=== PATIENT | female | born 1980 | race Caucasian/White ===

== ENCOUNTER 2019-05-08 11:35 | Emergency (ER) | payer SELFPAY ==
[~2019-05-08] VITALS: Ht 165.1 cm; Wt 60.9 kg
[2019-05-08] MEDS ORDERED: LIDOCAINE 5% TOPICAL OINTMENT 35GM TUBE. TP ONE (12:00)
[2019-05-08] MEDS ORDERED: LIDOCAINE/EPI/TETRACAINE TOPICAL GEL 3 ML. TP ONE ×2 (12:01→12:30)
[2019-05-08] MEDS ORDERED: DIPHTH,PERTUSS(ACELL),TET TOX 0.5 ML DISP.SYRIN. VAX IM ONE (12:20)
[2019-05-08 12:29] VITALS: BP 119/80
[2019-05-08] MEDS ORDERED: MELO7.5T29 PO (12:32)
--- NOTE | 2019-05-08 12:32 | PHYS DOC ---
Past History Past Medical History: No Pertinent History Past Surgical History: No Surgical History Smoking: Non-smoker Alcohol Use: Occasionally Drug Use: None Adult General Chief Complaint Chief Complaint: LACERATION/AVULSION HPI HPI Patient is a 88-year-old female presents complaining of right-sided head injury. She was pulling a wooden box filled with tools off of a shelf when the box slipped and hit her in the head. This happened shortly prior to arrival. No loss of consciousness. No nausea or vomiting. No change in vision. No neck pain. Bleeding was controlled with pressure.[] Review of Systems Review of Systems Constitutional: Denies fever or chills [] Eyes: Denies change in visual acuity, redness, or eye pain [] HENT: Denies nasal congestion or sore throat [] Respiratory: Denies cough or shortness of breath [] Cardiovascular: No additional information not addressed in HPI [] GI: Denies abdominal pain, nausea, vomiting, bloody stools or diarrhea [] : Denies dysuria or hematuria [] Musculoskeletal: Denies back pain or joint pain [] Integument: See history of present illness[] Neurologic: Denies headache, focal weakness or sensory changes [] Endocrine: Denies polyuria or polydipsia [] All other systems were reviewed and found to be within normal limits, except as documented in this note. Current Medications Current Medications Current Medications Medications (Trade) Dose Ordered Sig/Mary Start Time Stop Time Status Last Admin Dose Admin Diphtheria/ Tetanus/Acell Pertussis (Boostrix) 0.5 ml ONCE ONCE 05/08/19 12:20 05/08/19 12:21 DC 05/08/19 12:19 0.5 ML Lidocaine (Xylocaine) 1 claus 1X ONCE 05/08/19 12:00 05/08/19 12:01 UNV Lidocaine/ Epinephrine (Let Topical) 3 ml 1X ONCE 05/08/19 12:30 05/08/19 12:31 05/08/19 12:19 3 ML Allergies Allergies Allergies Coded Allergies Type Severity Reaction Last Updated Verified Penicillins Allergy Unknown 05/08/19 Yes Physical Exam Physical Exam Constitutional: Well developed, well nourished, no acute distress, non-toxic appearance. [] HENT: Normocephalic, right-sided temporal region LAC within the hairline. No skull exposure. No crepitus. bilateral external ears normal, TMs are clear�no blood or fluid behind the TM. Oropharynx moist, no oral exudates, nose normal. [] Eyes: PERRLA, EOMI, conjunctiva normal, no discharge. [] Neck: Normal range of motion, no tenderness, supple, no stridor. No step-off, no crepitus. [] Cardiovascular:Heart rate regular rhythm, no murmur [] Lungs & Thorax: Bilateral breath sounds clear to auscultation [] Abdomen: Bowel sounds normal, soft, no tenderness, no masses, no pulsatile masses. [] Skin: Warm, dry, no erythema, no rash. [] Back: No tenderness, no CVA tenderness. [] Extremities: No tenderness, no cyanosis, no clubbing, ROM intact, no edema. [] Neurologic: Alert and oriented X 3, normal motor function, normal sensory function, no focal deficits noted. [] Psychologic: Affect normal, judgement normal, mood normal. [] EKG EKG [] Radiology/Procedures Radiology/Procedures [] Course & Med Decision Making Course & Med Decision Making Pertinent Labs and Imaging studies reviewed. (See chart for details) ED course: Patient arrived, was placed in bed, and tolerated exam well. She rec eived updating of her tetanus vaccine. The wound was repaired as noted. She was discharged in improved condition. Medical decision making: Patient appears to have a scalp laceration. There is no evidence of uncontrolled bleeding. No evidence of a skull fracture. No evidence of intracranial.[] Dragon Disclaimer Dragon Disclaimer This electronic medical record was generated, in whole or in part, using a voice recognition dictation system. Departure Departure: Impression: Primary Impression: Scalp laceration Disposition: 01 HOME, SELF-CARE Condition: IMPROVED Referrals: PCP,NO (PCP) Patient Instructions: Staple Wound Closure, [id number] Additional Instructions: Follow-up with your regular doctor in 2 days for a wound check. If you do not have regular doctor a list of local clinics will be provided for you. Torrey out in 7 days. You may shower. No swimming, no hot tubbing until torrey are removed. Return to the ER if worsening pain, purulent drainage, fever of more than 101�, or any other concerns. Scripts Meloxicam (MELOXICAM) 7.5 Mg Tablet 7.5 MG PO DAILY for PAIN, #20 TAB Prov: GABINO MARC DO 05/08/19 Laceration Repair Lac Repair Indication: Right scalp laceration[] Procedure: The patient was placed in the appropriate position and anesthesia around the laceration was provided with LET. The area was then lanced. The laceration was closed with 3 torrey. Total repaired wound length: 2 cm Other Items: None The patient tolerated the procedure well. Hemostasis was achieved. Complications: None. Problem Qualifiers Primary Impression: Scalp laceration Encounter type: initial encounter Qualified Codes: S01.01XA - Laceration without foreign body of scalp, initial encounter GABINO MARC DO May 08, 2019 12:32
== END 2019-05-08 12:35 | disposition home or self-care (01) ==
LOC: ER 11:35
DX: S01.01XA Laceration without foreign body of scalp, initial encounter (principal); Z88.0 Allergy status to penicillin; W22.8XXA Striking against or struck by other objects, initial encounter; Y93.89 Activity, other specified; Y92.89 Other specified places as the place of occurrence of the external cause; Y99.8 Other external cause status
CPT/HCPCS: 12001; 90471; 90715; 99283-25

== ENCOUNTER 2019-05-14 08:42 | Emergency (ER) | payer SELFPAY ==
[~2019-05-14] VITALS: Ht 165.1 cm; Wt 58.9 kg
[~2019-05-14 08:42] MED LIST: MELO7.5T29 PO
--- NOTE | 2019-05-14 08:55 | PHYS DOC ---
Past History Past Medical History: No Pertinent History Past Surgical History: No Surgical History Smoking: Non-smoker Alcohol Use: Occasionally Drug Use: None Adult General Chief Complaint Chief Complaint: SUTURE/STAPLE REMOVAL HPI HPI 39-year-old female presents for staple removal. The patient has had them in 6 days. She had a small laceration to the right side of her scalp. She has had no complications. She's had no further bleeding. She denies fever or chills. Review of Systems Review of Systems Constitutional: Denies fever or chills [] Eyes: Denies change in visual acuity, redness, or eye pain [] HENT: Denies nasal congestion or sore throat [] Respiratory: Denies cough or shortness of breath [] Cardiovascular: No additional information not addressed in HPI [] GI: Denies abdominal pain, nausea, vomiting, bloody stools or diarrhea [] : Denies dysuria or hematuria [] Musculoskeletal: Denies back pain or joint pain [] Integument: [place] in right scalp[] Neurologic: Denies headache, focal weakness or sensory changes [] Endocrine: Denies polyuria or polydipsia [] All other systems were reviewed and found to be within normal limits, except as documented in this note. Allergies Allergies Allergies Coded Allergies Type Severity Reaction Last Updated Verified Penicillins Allergy Unknown 05/08/19 Yes Physical Exam Physical Exam Constitutional: Well developed, well nourished, no acute distress, non-toxic appearance. [] HENT: Normocephalic, atraumatic, bilateral external ears normal, oropharynx moist, no oral exudates, nose normal. [] Eyes: PERRLA, EOMI, conjunctiva normal, no discharge. [] Neck: Normal range of motion, no tenderness, supple, no stridor. [] Cardiovascular:Heart rate regular rhythm, no murmur [] Lungs & Thorax: Bilateral breath sounds clear to auscultation [] Abdomen: Bowel sounds normal, soft, no tenderness, no masses, no pulsatile masses. [] Skin: 3 andreea in right scalp, no sign of infection, well healed. [] Back: No tenderness, no CVA tenderness. [] Extremities: No tenderness, no cyanosis, no clubbing, ROM intact, no edema. [] Neurologic: Alert and oriented X 3, normal motor function, normal sensory function, no focal deficits noted. [] Psychologic: Affect normal, judgement normal, mood normal. [] EKG EKG [] Radiology/Procedures Radiology/Procedures [] Course & Med Decision Making Course & Med Decision Making Pertinent Labs and Imaging studies reviewed. (See chart for details) The patient's andreea appear ready for removal. I removed them without complication. The patient is stable for discharge at this time. [] Dragon Disclaimer Dragon Disclaimer This electronic medical record was generated, in whole or in part, using a voice recognition dictation system. Departure Departure: Impression: Primary Impression: Encounter for staple removal Disposition: HOME, SELF-CARE Condition: STABLE Referrals: PCP,VINNIE (PCP) Patient Instructions: Staple Removal, Care After STEFFANIE GARCIA DO May 14, 2019 08:55
[2019-05-14 09:00] VITALS: BP 112/68
== END 2019-05-14 09:00 | disposition home or self-care (01) ==
LOC: ER 08:42
DX: S01.01XD Laceration without foreign body of scalp, subsequent encounter (principal); Z88.0 Allergy status to penicillin; X58.XXXD Exposure to other specified factors, subsequent encounter
CPT/HCPCS: 99281